=== PATIENT | female | born 1955 | race Caucasian/White ===

== ENCOUNTER 2022-10-23 22:35 | Emergency (ER) | payer MEDICARE, OTHER ==
[2022-10-23] MEDS ORDERED: Acetaminophen 500 MG TAB ONE (23:07)
== END 2022-10-23 23:42 | disposition home or self-care (01) ==
LOC: CSHERS 22:35
DX: S02.2XXA Fracture of nasal bones, initial encounter for closed fracture (principal); S02.5XXA Fracture of tooth (traumatic), initial encounter for closed fracture; S09.90XA Unspecified injury of head, initial encounter; I10 Essential (primary) hypertension; W18.09XA Striking against other object with subsequent fall, initial encounter
CPT/HCPCS: 70450; 70486